=== PATIENT | male | born 1995 | race Caucasian/White ===

== ENCOUNTER 2024-05-11 00:30 | Emergency (ER) | payer SELFPAY ==
[~2024-05-11] VITALS: Ht 170.2 cm; Wt 104.3 kg
[2024-05-11 00:34] VITALS: BP 125/86; PULSE 85; RESP 18; TEMP 98; O2SAT 98
[2024-05-11] MEDS ORDERED: LORazepam 2 MG/ML VIAL ONE (00:48)
[2024-05-11] MEDS: LORazepam 2 MG/ML VIAL IM ONE (00:52)
[2024-05-11 01:02] LABS: AMPHETAMINE, URINE NEGATIVE ng/ml (NEG <=1000); BARBITURATE, URINE NEGATIVE ng/ml (NEG <=200); BENZODIAZEPINE, URINE NEGATIVE ng/mL (NEG <=200); CANNABINOID, URINE NEGATIVE ng/mL (NEG <=50); COCAINE, URINE NEGATIVE ng/mL (NEG <=300); OPIATE, URINE NEGATIVE ng/mL (NEG <=2000); PHENCYCLIDINE SCREEN,URINE NEGATIVE ng/mL (NEG <=25)
== END 2024-05-11 01:35 | disposition home or self-care (01) ==
LOC: MED 00:30
DX: R00.2 Palpitations (principal); R11.0 Nausea
CPT/HCPCS: 80305; 96372; 99283; J2060